=== PATIENT | female | born 1985 | race Caucasian/White ===

== ENCOUNTER 2017-08-21 23:08 | Day surgery (SDC) | payer OTHER ==
[~2017-08-21] VITALS: Ht 165.1 cm; Wt 95.1 kg
[2017-08-22 00:40] LABS: HEMATOCRIT 33.8 % (36.0-46.0); HEMOGLOBIN 12.1 G/DL (11.9-15.5); MCH 31.8 PG (29.0-34.0); MCHC 35.8 G/DL (30.0-36.0); MCV 88.7 FL (83-99); PLATELET COUNT 308 K/uL (156-360); RBC DIS.WIDTH-CV 12.3 % (11.8-14.6); RBC DIS.WIDTH-SD 39.8 % (39-53); RED BLOOD COUNT 3.81 M/uL (3.80-5.20)
[2017-08-22 00:51] LABS: ALBUMIN 3.8 g/dL (3.2-4.8); CHLORIDE 104 mEq/L (99-109); SODIUM 136 mEq/L (136-147)
[2017-08-22 00:53] LABS: GLUCOSE 119 mg/dL (70-99)
[2017-08-22 00:54] LABS: TOTAL PROTEIN 6.5 g/dL (6.4-8.3)
[2017-08-22 00:55] LABS: TOTAL BILIRUBIN 0.4 mg/dL (0.0-1.0)
[2017-08-22 00:57] LABS: ALKALINE PHOSPHATASE 43 IU/L (3-129); CREATININE 0.8 mg/dL (0.6-1.3); GFR ESTIMATE (CALCULATED) > 59 mL/min/
[2017-08-22 00:58] LABS: UREA NITROGEN (BUN) 11 mg/dL (9-23)
[2017-08-22 00:59] LABS: AST (GOT) 10 IU/L (2-34)
[2017-08-22 01:00] LABS: ALT (GPT) 11 IU/L (3-49)
[2017-08-22 01:09] LABS: QUANTITATIVE HCG 5864.5 MIU/ML
[2017-08-22 01:46] LABS: APPEARANCE SL.HAZY ((CLEAR)); BILIRUBIN NEGATIVE; BLOOD LARGE; COLOR YELLOW ((YELLOW)); GLUCOSE (STRIP) NEGATIVE; KETONES NEGATIVE; LEUKOCYTES TRACE; NITRITE NEGATIVE; PROTEIN (STRIP) 100; SPECIFIC GRAVITY 1.023 (1.000-1.030); UROBILINOGEN 0.2 MG/DL (0.2-1.0)
[2017-08-22 02:10] LABS: BACTERIA 1+ /HPF; EPITHELIAL CELLS 2+ /HPF; MUCUS TRACE /LPF; RED BLOOD CELLS 20-30 /HPF (0-5); UCUL ADDED? YES; WHITE BLOOD CELLS 15-20 /HPF (0-5)
[2017-08-22] MEDS ORDERED: ENDOCET 5-3251 EACH PO (05:27)
[2017-08-22 06:28] VITALS: BP 109/67
[2017-08-22 08:42] VITALS: BP 99/58
== END 2017-08-22 10:11 | disposition home or self-care (01) ==
LOC: EME 23:08 → SDC 08-22 03:57 → EME 08-22 03:57 → 2EASTP 08-22 03:57 → 2SOUTH 08-22 05:16 → ENRESERV 08-22 05:29 → 2EASTP 08-22 06:26
PROVIDERS: Emergency Medicine
DX: O00.102 Left tubal pregnancy without intrauterine pregnancy (principal); E28.2 Polycystic ovarian syndrome; Z87.891 Personal history of nicotine dependence
CPT/HCPCS: 76801; 80053; 81003; 84702; 85027; 85610; 86850; 86900; 86901; 87086; 88305; 99281; 99285; G0378; J1100; J1170; J1885; J2250; J2405; J2710; J3010; J7030; J7643; J9260; S0020